=== PATIENT | female | born 1995 | race African-American/Black ===

== ENCOUNTER 2019-02-14 22:29 | Emergency (ER) | payer SELFPAY ==
[~2019-02-14] VITALS: Ht 160 cm; Wt 63.0 kg
[2019-02-14] MEDS ORDERED: SODIUM CHLORIDE 0.9% 1,000 ML IV ONE (23:45)
[2019-02-14] MEDS ORDERED: ONDANSETRON HCL 4MG/2ML INJ IV ONE (23:45)
[2019-02-15] MEDS ORDERED: LIDOCAINE HCL/PF 1% 10 MG/ML 5ML VIAL IJ ONE (00:30)
[2019-02-15] MEDS ORDERED: TETANUS, DIPHTHERIA, PERTUSSIS VAC/PF 0.5ML (>7YR OLD) IM ONE (00:30)
[2019-02-15 00:45] VITALS: BP 111/75
[2019-02-15] MEDS ORDERED: MORPHINE SULFATE 4 MG/ML CPJ (NOT FOR IM USE) IV ONE (01:15)
[2019-02-15] MEDS ORDERED: HYDROCODONE/ACETAMINOPHEN 5/325MG TABLET PO ONE (03:30)
== END 2019-02-15 04:07 | disposition home or self-care (01) ==
LOC: ER 22:29
DX: S01.91XA Laceration without foreign body of unspecified part of head, initial encounter (principal); D64.9 Anemia, unspecified; V43.62XA Car passenger injured in collision with other type car in traffic accident, initial encounter; Y93.9 Activity, unspecified; Y92.488 Other paved roadways as the place of occurrence of the external cause
CPT/HCPCS: 12002; 70450; 73630; 81025; 90471; 90715; 96361; 96374; 96375; 99284; J2270; J2405; J3490; J7030; Z7610